=== PATIENT | male | born 1960 | race Hispanic/Latino ===

== ENCOUNTER 2019-06-27 16:00 | Emergency (ER) | payer OTHER ==
[~2019-06-27] VITALS: Ht 172.7 cm; Wt 108.9 kg
[2019-06-27] MEDS ORDERED: ASPIRIN 81 MG CHEW TAB PO ONE (17:15)
--- NOTE | 2019-06-27 17:28 | Emergency Department Note ---
History of Present Illnes History of Present Illness Chief Complaint: General Medicine Complaints History of Present Illness This is a 58 year old male .c/o hear racing nessa on and off each time felt little sob Chief Complaint Comment here for palpitations early this morning and got worse as the day progressed. states palpitations take his breath away at times. Historian: Patient Arrival Mode: Car Onset (how long ago): day(s) (this am ) Radiation: non-radiation, back, neck, extremity, abdomen, periumbilical, flank, proximal, distal, other Severity: mild Onset quality: sudden Duration (how long): day(s) (today ) Progression: waxing and waning Context: recent illness, recent surgery, recent immobilization, recent travel, trauma/injury, new medications, hx of DVT/PE, non-compliance w/ medications, other Relieving factors: none Exacerbating factors: none Associated symptoms: denies other symptoms Treatments prior to arrival: none (REGINALD CANALES NP) Past Medical/Family History Physician Review I have reviewed the patient's past medical and family history. Any updates have been documented here. (REGINALD CANALES NP) Past Medical History Recent Fever: No Clinical Suspicion of Infectio: No New/Unexplained Change in Ment: No Past Medical History: Hypertension Other Surgery: intestinal rupture (REGINALD CANALES NP) Social History Smoking Cessation: Never Smoker Alcohol Use: None Any Illegal Drug Use: No TB Exposure/Symptoms: No (REGINALD CANALES NP) Family History Family history of heart diseas: No (REGINALD CANALES NP) Other Any Pre-Existing Lines (PICC,: No (REGINALD CANALES NP) Review of Systems Review of Systems Constitutional: no symptoms EENTM: no symptoms Cardiovascular: palpitations Respiratory: no symptoms Gastrointestinal: no symptoms Genitourinary: no symptoms Musculoskeletal: no symptoms Neurological: no symptoms Psychological: no symptoms Endocrine: no symptoms Hematological/Lymphatic: no symptoms Review of other systems All other systems reviewed and negative. (REGINALD CANALES NP) Physical Exam Related Data Allergies: Coded Allergies: No Known Allergies (Unverified , 06/27/19) Triage Vital Signs Vital Signs Date Time Temp Pulse Resp B/P (MAP) Pulse Ox O2 Delivery O2 Flow Rate FiO2 06/27/19 16:43 97.8 92 16 179/95 96 Vital signs reviewed: Yes (SHORT,REGINALD D SPRINKLER FITTER HELPER) Physical Exam CONSTITUTIONAL Constitutional: well-developed, well-nourished HENT HENT: normocephalic, atraumatic, oropharynx clear/moist, nose normal HENT L/R: left ext ear normal, right ext ear normal EYES Eyes: PERRL, conjunctivae normal NECK Neck: ROM normal PULMONARY Pulmonary: effort normal, breath sounds normal CARDIOVASCULAR Cardiovascular: regular rhythm, heart sounds normal, capillary refill normal, normal rate GASTROINTESTINAL Abdominal: soft, nontender, bowel sounds normal GENITOURINARY Genitourinary: exam deferred SKIN Skin: warm, dry MUSCULOSKELETAL Musculoskeletal: ROM normal NEUROLOGICAL Neurological: alert, oriented x 3, no gross motor or sensory deficits PSYCHOLOGICAL Psychological: mood/affect normal, judgement normal (REGINALD CANALES SPRINKLER FITTER HELPER) Results Laboratory Laboratory Laboratory Tests Test 06/27/19 18:19 06/27/19 17:57 Urine Color Yellow (YELLOW) Urine Clarity Clear (CLEAR) Urine pH 6.5 (5 - 7) Urine Specific [place] 1.025 (1.010-1.025) Urine Protein Negative (NEGATIVE) Urine Glucose (UA) Negative (NEGATIVE) Urine Ketones Negative (NEGATIVE) Urine Blood Trace (NEGATIVE) Urine Nitrite Negative (NEGATIVE) Urine Bilirubin Negative (NEGATIVE) Urine Urobilinogen 1 mg/dL (0.2 - 1) Urine Leukocyte Esterase Negative (NEGATIVE) Urine RBC None /HPF (0-5) Urine WBC None /HPF (0-5) Urine Epithelial Cells Rare /LPF (NONE) Urine Bacteria None /HPF (NONE) Urine Opiates Screen Negative (NEGATIVE) Urine Methadone Screen Negative (NEGATIVE) Urine Barbiturates Screen Negative (NEGATIVE) Urine Phencyclidine Screen Negative (NEGATIVE) Urine Amphetamines Screen Negative (NEGATIVE) Urine Methamphetamines Screen Negative (NEGATIVE) Urine Benzodiazepines Screen Negative (NEGATIVE) Urine Cocaine Screen Negative (NEGATIVE) Urine Cannabinoids Screen Negative (NEGATIVE) White Blood Count 8.64 x10e3/uL (4.8-10.8) Red Blood Count 4.94 x10e6/uL (4.3-5.7) Hemoglobin 14.9 g/dL (14.0-18.0) Hematocrit 44.4 % (38.2-49.6) Mean Corpuscular Volume 89.9 fL (81-99) Mean Corpuscular Hemoglobin 30.2 pg (28-32) Mean Corpuscular Hemoglobin Concent 33.6 g/dL (31-35) Red Cell Distribution Width 13.7 % (11.7-14.4) Platelet Count 253 x10e3/uL (140-360) Neutrophils (%) (Auto) 67.0 % (38.7-80.0) Lymphocytes (%) (Auto) 20.7 % (18.0-39.1) Monocytes (%) (Auto) 9.5 % (4.4-11.3) Eosinophils (%) (Auto) 1.9 % (0.0-6.0) Basophils (%) (Auto) 0.6 % (0.0-1.0) Neutrophils # (Auto) 5.8 (2.1-6.9) Lymphocytes # (Auto) 1.8 (1.0-3.2) Monocytes # (Auto) 0.8 (0.2-0.8) Eosinophils # (Auto) 0.2 (0.0-0.4) Basophils # (Auto) 0.1 (0.0-0.1) Absolute Immature Granulocyte (auto 0.03 x10e3/uL (0-0.1) Prothrombin Time 13.4 seconds (11.9-14.5) Prothromb Time International Ratio 0.96 Activated Partial Thromboplast Time 27.1 seconds (23.8-35.5) Sodium Level 140 mmol/L (136-145) Potassium Level 3.9 mmol/L (3.5-5.1) Chloride Level 107 mmol/L (98-107) Carbon Dioxide Level 22 mmol/L (22-29) Anion Gap 14.9 mmol/L (8-16) Blood Urea Nitrogen 16 mg/dL (7-26) Creatinine 1.06 mg/dL (0.72-1.25) Estimat Glomerular Filtration Rate > 60 ML/MIN (60-) BUN/Creatinine Ratio 15 (6-25) Glucose Level 113 mg/dL (74-118) Calcium Level 8.8 mg/dL (8.4-10.2) Total Bilirubin 0.4 mg/dL (0.2-1.2) Aspartate Amino Transf (AST/SGOT) 49 IU/L (5-34) Alanine Aminotransferase (ALT/SGPT) 103 IU/L (0-55) Alkaline Phosphatase 89 IU/L (40-150) Creatine Kinase 85 IU/L (30-200) Creatine Kinase MB 1.90 ng/mL (0-5.0) Troponin I < 0.001 ng/mL (0-0.300) Total Protein 7.1 g/dL (6.5-8.1) Albumin 3.6 g/dL (3.5-5.0) Globulin 3.5 g/dL (2.3-3.5) Albumin/Globulin Ratio 1.0 (0.8-2.0) Thyroid Stimulating Hormone (TSH) 2.054 uIU/mL (0.350-4.940) Laboratory Tests Test 06/27/19 17:57 White Blood Count 8.64 x10e3/uL (4.8-10.8) Red Blood Count 4.94 x10e6/uL (4.3-5.7) Hemoglobin 14.9 g/dL (14.0-18.0) Hematocrit 44.4 % (38.2-49.6) Mean Corpuscular Volume 89.9 fL (81-99) Mean Corpuscular Hemoglobin 30.2 pg (28-32) Mean Corpuscular Hemoglobin Concent 33.6 g/dL (31-35) Red Cell Distribution Width 13.7 % (11.7-14.4) Platelet Count 253 x10e3/uL (140-360) Neutrophils (%) (Auto) 67.0 % (38.7-80.0) Lymphocytes (%) (Auto) 20.7 % (18.0-39.1) Monocytes (%) (Auto) 9.5 % (4.4-11.3) Eosinophils (%) (Auto) 1.9 % (0.0-6.0) Basophils (%) (Auto) 0.6 % (0.0-1.0) Neutrophils # (Auto) 5.8 (2.1-6.9) Lymphocytes # (Auto) 1.8 (1.0-3.2) Monocytes # (Auto) 0.8 (0.2-0.8) Eosinophils # (Auto) 0.2 (0.0-0.4) Basophils # (Auto) 0.1 (0.0-0.1) Absolute Immature Granulocyte (auto 0.03 x10e3/uL (0-0.1) Prothrombin Time 13.4 seconds (11.9-14.5) Prothromb Time International Ratio 0.96 Activated Partial Thromboplast Time 27.1 seconds (23.8-35.5) Sodium Level 140 mmol/L (136-145) Potassium Level 3.9 mmol/L (3.5-5.1) Chloride Level 107 mmol/L (98-107) Carbon Dioxide Level 22 mmol/L (22-29) Anion Gap 14.9 mmol/L (8-16) Blood Urea Nitrogen 16 mg/dL (7-26) Creatinine 1.06 mg/dL (0.72-1.25) Estimat Glomerular Filtration Rate > 60 ML/MIN (60-) BUN/Creatinine Ratio 15 (6-25) Glucose Level 113 mg/dL (74-118) Calcium Level 8.8 mg/dL (8.4-10.2) Total Bilirubin 0.4 mg/dL (0.2-1.2) Aspartate Amino Transf (AST/SGOT) 49 IU/L (5-34) Alanine Aminotransferase (ALT/SGPT) 103 IU/L (0-55) Alkaline Phosphatase 89 IU/L (40-150) Creatine Kinase 85 IU/L (30-200) Total Protein 7.1 g/dL (6.5-8.1) Albumin 3.6 g/dL (3.5-5.0) Globulin 3.5 g/dL (2.3-3.5) Albumin/Globulin Ratio 1.0 (0.8-2.0) (REGINALD CANALES SPRINKLER FITTER HELPER) Imaging Impressions Procedure: DX/CHEST SINGLE (PORTABLE) Exam Date: 06/27/19 Exam Time: 1809 REPORT STATUS: Signed Examination: Single AP view of the chest. COMPARISON: None. INDICATION: Heart palpitations IMPRESSION: 1. Lines and Tubes: None 2. Lungs are grossly clear. No consolidation or effusion. 3. Cardiomediastinal silhouette is normal. Pulmonary vasculature is normal. 4. No acute bony abnormalities. Signed by: Dr. Alaina Stark M.D. on 06/27/2019 6:33 PM Dictated By: ALAINA STARK MD 32 Transcribed By: SAIDA on 06/27/191832 (REGINALD CANALES NP) Procedures 12 Lead ECG Interpretation Communications Engineering Technician: Interpreted by ED physician ([email or web address]) Date: June 27, 2019 Time: 17:55 Prior INTERACTIVE MULTIMEDIA DESIGNER tracings: reviewed Rhythm: sinus rhythm Rate: normal BPM: 79 QRS axis: normal Clinical Impression: normal ECG (REGINALD CANALES NP) Critical Care Time Subsequent provider I assumed direction of critical care for this patient from another provider of my specialty. (REGINALD CANALES NP) Clinical Decision Tools HEART Score Date Taken: June 27, 2019 Time taken: 17:53 List risk factors htn HEART Score: HEART Score Response (Comments) Value History Slightly suspicious 0 EKG Normal 0 Age 45 - 65 1 Risk factors 1 or 2 risk factors 1 Troponin < or = to normal limit Total 2 (REGINALD CANALES NP) Assessment & Plan Reassessment Reassessment time: 17:26 Reassessment 58y m presented to ed c/o palpitations on set today w/ feeling little sob sts palpitations come and go -pt denies cp dizziness n/v sob barber at this time - Dr Isaac castaneda in eval pt status - lab ekg cxr ordered (REGINALD CANALES NP) Reassessment Repeat EKG at 2134 demonstrates ,NSR at rate of [address] deviation or ectopy . CE x 2 pending but expected disposition is discharge if neg (REGINALD SPEARS DO) Assessment & Plan Final Impression: (1) Palpitations Assessment & Plan Dr Spears in eval pt status discussed lab cxr ekg results plan of care will rept 2nd set CE if ok f/u w/ hunter trapper in 1-2 days w/o fail 1. follow up with hunter trapper in 1-2 days without fail 2. return to ed as needed 3. avoid all caffeine products (REGINALD CANALES NP) Depart Disposition: HOME, SELF-CARE Last Vital Signs Vital Signs Date Time Temp Pulse Resp B/P (MAP) Pulse Ox O2 Delivery O2 Flow Rate FiO2 06/27/19 18:51 84 18 137/89 97 06/27/19 16:43 97.8 92 16 179/95 96 Date Time Temp Pulse Resp B/P (MAP) Pulse Ox O2 Delivery O2 Flow Rate FiO2 06/27/19 16:43 97.8 92 16 179/95 96 (REGINALD CANALES NP) Medications in the ED Aspirin 81 mg PRN ONCE PO ; Start 06/27/19 at 17:15; Stop 5/20/20 at 17:16 (REGINALD CANALES SPRINKLER FITTER HELPER) Medications in the ED Aspirin 81 mg PRN ONCE PO Last administered on 06/27/19at 17:54; Admin Dose 81 MG; Start 06/27/19 at 17:15; Stop 06/27/19 at 17:27; Status DC (REGINALD SPEARS DO) Physician Attestation Provider Attestation The patient's history, exam findings, diagnostics, and a summary of any interventions or procedures was reviewed in detail with our DANIELA. I personally interviewed and examined the patient, and I have reviewed and agree with the HPI andexam. My personal exam shows [Normal exam. NSR x 2 with CE x 2 negative. Patient to be discharged to home. ]. I confirm the diagnosis as documented by the DANIELA. I have reviewed and agree with the care plan articulated in the disposition section. (REGINALD SPEARS DO) REGINALD CANALES NP June 27, 2019 17:28 REGINALD SPEARS DO June 27, 2019 21:35
[2019-06-27 18:18] LABS: BASOPHILS # (AUTO) 0.1 (0.0-0.1); BASOPHILS % 0.6 % (0.0-1.0); EOSINOPHILS # (AUTO) 0.2 (0.0-0.4); EOSINOPHILS % 1.9 % (0.0-6.0); HEMATOCRIT 44.4 % (38.2-49.6); HEMOGLOBIN 14.9 g/dL (14.0-18.0); LYMPHOCYTES # (AUTO) 1.8 (1.0-3.2); LYMPHOCYTES % 20.7 % (18.0-39.1); MEAN CORPUSCULAR HEMOGLOBIN 30.2 pg (28-32); MEAN CORPUSCULAR HGB CONC 33.6 g/dL (31-35); MEAN CORPUSCULAR VOLUME 89.9 fL (81-99); MONOCYTES # (AUTO) 0.8 (0.2-0.8); MONOCYTES % 9.5 % (4.4-11.3); NEUTROPHILS # (AUTO) 5.8 (2.1-6.9); PLATELET COUNT 253 x10e3/uL (140-360); RED BLOOD COUNT 4.94 x10e6/uL (4.3-5.7); RED CELL DISTRIBUTION WIDTH 13.7 % (11.7-14.4)
[2019-06-27 18:24] LABS: INR 0.96; PROTHROMBIN TIME 13.4 seconds (11.9-14.5)
[2019-06-27 18:25] LABS: PARTIAL THROMBOPLASTIN TIME 27.1 seconds (23.8-35.5)
[2019-06-27 18:31] LABS: ALANINE AMINOTRANSFERASE 103 IU/L (0-55); ALBUMIN 3.6 g/dL (3.5-5.0); ALKALINE PHOSPHATASE 89 IU/L (40-150); ANION GAP 14.9 mmol/L (8-16); BLOOD UREA NITROGEN 16 mg/dL (7-26); BUN/CREATININE RATIO 15 (6-25); CALCIUM 8.8 mg/dL (8.4-10.2); CARBON DIOXIDE 22 mmol/L (22-29); CHLORIDE 107 mmol/L (98-107); CREATINE KINASE 85 IU/L (30-200); CREATININE, SERUM 1.06 mg/dL (0.72-1.25); EST GLOMERULAR FILTRATION RATE > 60 ML/MIN (60-); GLUCOSE 113 mg/dL (74-118); POTASSIUM 3.9 mmol/L (3.5-5.1); SODIUM 140 mmol/L (136-145)
--- NOTE | 2019-06-27 18:37 | Diagnostic Imaging Report ---
Examination: Single AP view of the chest. COMPARISON: None. INDICATION: Heart palpitations IMPRESSION: 1. Lines and Tubes: None 2. Lungs are grossly clear. No consolidation or effusion. 3. Cardiomediastinal silhouette is normal. Pulmonary vasculature is normal. 4. No acute bony abnormalities. Signed by: Dr. Leonides Stark M.D. on 06/27/2019 6:33 PM
[2019-06-27 18:54] LABS: AMPHETAMINES SCREEN,URINE NEGATIVE (NEGATIVE); BENZODIAZEPINES SCREEN,URINE NEGATIVE (NEGATIVE); CLARITY,URINE CLEAR (CLEAR); COLOR,URINE YELLOW (YELLOW); KETONES,URINE NEGATIVE (NEGATIVE); LEUKOCYTE ESTERASE ,URINE NEGATIVE (NEGATIVE); NITRITE,URINE NEGATIVE (NEGATIVE); PHENCYCLIDINE SCREEN,URINE NEGATIVE (NEGATIVE); PROTEIN,URINE DIPSTICK NEGATIVE (NEGATIVE)
[2019-06-27 18:55] LABS: THYROID STIMULATING HORMONE 2.054 uIU/mL (0.350-4.940)
[2019-06-27 18:55] LABS: BILIRUBIN,URINE NEGATIVE (NEGATIVE); URINE UROBILINOGEN 1 mg/dL (0.2 - 1)
[2019-06-27 19:04] LABS: EPITHELIAL CELLS,URINE RARE /LPF
--- NOTE | 2019-06-27 19:22 | NUR ---
report given to Andres NAJERA
[2019-06-27 21:38] LABS: CREATINE KINASE 85 IU/L (30-200)
[2019-06-27 22:00] VITALS: BP 116/59
--- OUTSIDE RECORDS SUMMARY | 2019-06-28 10:13 | XMS REPORT | Clinical Summary ---
Author Author [facility] Organization [facility] Address Unknown Phone Unavailable Care Team Providers Care Banquet Waiter/Waitress Name Role Phone Asked, No Pcp PCP Unavailable Allergies Not on File Medications Not on file Active Problems Not on file Encounters Care Team Description Date Type Specialty 06/20/2019 Travel Santosh Patel MD Complex tear of lateral meniscus of righ t knee as current injury, initial encounter (Primary Dx); Acute pain of right knee 06/14/2019 Office Visit Orthopedic Surgery 06/14/2019 Travel after 06/26/2018 Social History Date Tobacco Use Types Packs/Day Years Used Never Assessed Sex Assigned at Date Recorded Not on file Industry Job Start Date Occupation Not on file Not on file Not on file Travel End Travel History Travel Start No recent travel history available. Date Recorded COVID-19 Exposure Response 06/20/2019 1:52 PM CDT In the last month, have you been in contact with No / Unsure someone who was confirmed or suspected to have Coronavirus / COVID-19? Last Filed Vital Signs Not on file Plan of Treatment Health Maintenance Due Date Last Done Comments COLONOSCOPY SCREENING 10/15/2011 SHINGLES VACCINES (#1) 10/15/2011 INFLUENZA VACCINE 09/08/2019 Procedures Comments Procedure Name Priority Date/Time Associated Diag nosis XR KNEE 4+ VW RIGHT Routine 06/14/2019 Acute pain of right knee 1:25 PM CDT after 06/26/2018 Results * XR Knee 4+ Vw Right (06/14/2019 1:25 PM CDT) Specimen Narrative Performed At [facility] Three-view projection of the right knee shows a preservation of the joint with an anatomic angle of +6 degrees on ly mild notch congestion and lateral joint osteophyte formation with minimal amount of medial joint space narrowing. The lateral aspect o r sagittal view shows no excellent preservation of the joint the merchant view centers at 6 degrees no evidence of any patellofemoral arthriti s. Performing Organization Address City/State/Zipcode Ph one Number [facility] [address] [place] [address] after 06/26/2018 Insurance Type Payer Benefit Subscriber ID Effective Phone Address Plan / Dates Group HMO CIGNA CIGNA OPEN xxxxxxxxxxx 2017-P ACCESS/NET resent WORK Advance Directives For more information, please contact: [phone] Patient Fuel Truck Driver Explanation Type Date Recorded Advance Directives, Living Will and Medical Power of Application Support Engineer
--- OUTSIDE RECORDS SUMMARY | 2019-06-28 10:13 | XMS REPORT ---
Author Author [facility] t Organization [facility] Address [address] [place] [address] Phone Unavailable Care Team Providers Care Propulsion Machinery Service Engineer Name Role Phone Neeru MATA PCP REGINALD LOPEZ Attphys Unavailable Eren Agarwal MD Attphys CASTRO YADAV Attphys Unavailable CASTRO YADAV Admphys Unavailable Payers Payer Name Policy Type Policy Number Effective Date Expiration Date Keerthi jeter CIGGAKunal OPEN ACCESS/NETWORKxxxxxxxxxxx1-PresentO xxxxxxxxxxx 2017 00:00:00 [facility] Advance Directives Directive Decision Effective Date Termination Date Comments Sour ce Yes N/A [facility] Problems Condition Name Condition Details Condition Category Status Onset Date Resolution Date Last Treatment Date Treating Clinician Comments Source Palpitations Problem [facility] Allergies, Adverse Reactions, Alerts This patient has no known allergies or adverse reactions. Social History Social Habit Start Date Stop Date Quantity Comments Source Sex Assigned At [facility] Exposure to SARS-CoV-2 (event) Not sure [facility] Medications This patient has no known medications. Vital Signs Vital Name Observation Time Observation Value Comments Source Body Temperature 2019-06-27 22:00:00 98.5 [degF] [facility] Weight 2019-06-27 16:43:00 240 [lb_av] [facility] BMI (Body Mass Index) 2019-06-27 16:43:00 36.5 kg/m2 [facility] Procedures Procedure Date / Time Performed [facility]forming [facility] VW RIGHT 2019-06-14 13:25:14 [facility] Plan of Care Planned Activity Planned Date Details Comments Source Future Scheduled Test 2019-09-08 00:00:00 INFLUENZA VACCINE [code = INFLUENZA VACCINE] [facility] Future Scheduled Test 2011-10-15 00:00:00 COLONOSCOPY SCREEN ING [code = COLONOSCOPY SCREENING] [facility] Scheduled Test 2011-10-15 00:00:00 SHINGLES VACCINES (#1) [code = SHINGLES VACCINES (#1)] [facility] Scheduled Test Bacterial urine culture [code = 630-4] [facility] Future Scheduled Test Serum or plasma cr eatine kinase measurement (enzymatic activity/volume) [code = 2157-6] [facility] Future Scheduled Test Serum or plasma cr eatine kinase MB measurement (mass/volume) [code = 30517-3] [facility] Future Scheduled Test Serum or plasma tr oponin i.cardiac measurement by detection limit <= 0.01 NG/ml (mass/volume) [code = 16982-6] [facility] Goal Patient referral [code = 1091896 ] [facility] Goal Patient referral [code = 1007830 ] [facility] Goal Patient referral [code = 1544263 ] [facility] Goal Patient referral [code = 8585694 ] [facility] Instructions Heart Palpitations [facility] Encounters Start Date/Time End Date/Time Encounter Type Admission Type Attendi [facility] Care Department Encounter ID Source 2019-06-27 16:00:00 2019-06-27 22:05:00 Departed Emergency Room [address] [facility] [id number] [facility] 2019-06-14 00:00:00 2019-06-14 00:00:00 Outpatient Kelly AGARWAL [facility] [id number] Wilber Ocasioist 2019-06-14 00:00:00 2019-06-14 00:00:00 Outpatient Kelly AGARWAL [facility] [id number] [facility] Results Test Description Test Time Test Comments Results Result Comments Source Serum or plasma creatine kinase measurement (enzymatic activity/volume) 2019-06-27 21:15:00 Test Item Creatine Kinase (test code = 2157-6) 85 [facility] creatine kinase MB measurement (mass/volume)2019-06-27 21:15:00* Test Item Value Reference Range Interpretation Comments Creatine Kinase MB (test code = 27555-6) 2.00 [facility] CenterTroponin I measurement by highly sensitive enzyme eacjxitiqms4617-86-53 21:15:00* Test Item Value Reference Range Interpretation Comments Troponin I (test code = 27934-3) < 0.001 [facility] CenterCHEST SINGLE (PORTABLE)2019-06-27 18:33:00 [facility] [address] [place] [address] Patient Name: VALARIE SWEENEY MR #: [id number] : 1960 Age/Sex: 58/M Req #: [id number] Adm Physician: Ordered by: REGINALD CANALES SENIOR MANAGING DIRECTOR Report #: [id number] Location: ER Room/Bed: Procedure: [id number] DX/CHEST SIN GLE (PORTABLE) Exam Date: 06/27/19 Exam Time: 1809 REPORT STATUS: Signed Examination: Single AP view of the chest. COMPARISON: None. INDICATION: Heart pal pitations IMPRESSION: 1. Lines and Tubes: None 2. Lungs are g rossly clear. No consolidation or effusion. 3. Cardiomediastinal silhouette is normal. Pulmonary vasculature is normal. 4. No acute bony abnormalities. Signed by: Dr. Leonides Stark M.D. on 06/27/2019 6:33 PM Dictated By: LEONIDES STARK MD 32 Transcribed By: SAIDA on 06/27/191832 COPY TO: REGINALD CANALES NP Urine color tpnoksyuudqkm4638-59-44 18:19:00* Test Item Value Reference Range Interpretation Comments Urine Color (test code = 5778-6) YELLOW [facility] CenterUrine rofewyd1322-53-72 18:19:00* Test Item Value Reference Range Interpretation Comments Urine Clarity (test code = 89253-0) CLEAR [facility] U[facility] by Test strip 2019-06-27 18:19:00* Test Item Value Reference Range Interpretation Comments Urine Specific [place] (test code = 5811-5) 1.025 [facility] CenterU[facility] pH measurement by automated test aaxgp3466-61-78 18:19:00* Test Item Value Reference Range Interpretation Comments Urine pH (test code = 57634-5) 6.5 [facility] CenterUrine leukocyte esterase detection by btuqmfvi8035-37-12 18:19:00* Test Item Value Reference Range Interpretation Comments Urine Leukocyte Esterase (test code = 5799-2) NEGATIVE [facility] CenterUrine nitrite kxrapkimm1686-62-26 18:19:00* Test Item Value Reference Range Interpretation Comments Urine Nitrite (test code = 58178-1) NEGATIVE [facility] CenterUrine protein measurement by test strip (mass/volume)2019-06-27 18:19:00* Test Item Value Reference Range Interpretation Comments Urine Protein (test code = 5804-0) NEGATIVE [facility] CenterUrine glucose aqhzewfrr6130-79-87 18:19:00* Test Item Value Reference Range Interpretation Comments Urine Glucose (UA) (test code = 2349-9) NEGATIVE [facility] CenterUrine ketones detection by automated test ioyyg6048-72-02 18:19:00* Test Item Value Reference Range Interpretation Comments Urine Ketones (test code = 67050-1) NEGATIVE [facility] CenterUrine opiates screening moyj5817-89-57 18:19:00* Test Item Value Reference Range Interpretation Comments Urine Opiates Screen (test code = 37633-5) NEGATIVE [facility] CenterBarbiturates screen, usqee0745-57-52 18:19:00* Test Item Value Reference Range Interpretation Comments Urine Barbiturates Screen (test code = 038557254) NEGATIVE [facility] CenterUrine phencyclidine detection by screening uuwikk8177-60-46 18:19:00* Test Item Value Reference Range Interpretation Comments Urine Phencyclidine Screen (test code = 67546-6) NEGATIVE [facility] CenterUrine amphetamines detection by screen method > 1000 ng/pG2155-30-87 18:19:00* Test Item Value Reference Range Interpretation Comments Urine Amphetamines Screen (test code = 12416-6) NEGATIVE [facility] CenterFluoroscopic procedure less than one hour eikyciwp0830-69-25 18:19:00* Test Item Value Reference Range Interpretation Comments Urine Methamphetamines Screen (test code = Urine Metha mphetamines Screen) NEGATIVE [facility] CenterUrine benzodiazepines detection by screening ayaztk3379-54-10 18:19:00* Test Item Value Reference Range Interpretation Comments Urine Benzodiazepines Screen (test code = 78877-0) NEGATIVE [facility] CenterUrine cocaine measurement (mass/volume) 2019-06-27 18:19:00* Test Item Value Reference Range Interpretation Comments Urine Cocaine Screen (test code = 3398-5) NEGATIVE [facility] CenterUrine cannabinoids detection by screening phrgtz1259-55-55 18:19:00* Test Item Value Reference Range Interpretation Comments Urine Cannabinoids Screen (test code = 62533-3) NEGATIVE [facility] CenterUrine methadone tctlkr6088-97-79 18:19:00 * Test Item Value Reference Range Interpretation Comments Urine Methadone Screen (test code = 21720-5) NEGATIVE [facility] CenterUrine urobilinogen measurement by test strip (mass/volume)2019-06-27 18:19:00* Test Item Value Reference Range Interpretation Comments Urine Urobilinogen (test code = 96101-7) 1 [facility] CenterUrine total bilirubin measurement (mass/volume)2019-06-27 18:19:00* Test Item Value Reference Range Interpretation Comments Urine Bilirubin (test code = 1978-6) NEGATIVE [facility] CenterUrine erythrocytes pvbaaknbt8387-58-93 18:19:00* Test Item Value Reference Range Interpretation Comments Urine Blood (test code = 34308-0) TRACE [facility] CenterAutomated urine sediment leukocyte count by microscopy (number/high power field)2019-06-27 18:19:00* Test Item Value Reference Range Interpretation Comments Urine WBC (test code = 5821-4) NONE [facility] CenterErythrocytes detection in urine sediment by light gwdcudxwtk1405-40-78 18:19:00* Test Item Value Reference Range Interpretation Comments Urine RBC (test code = 61911-2) NONE [facility] CenterBacteria detection in urine sediment by light srigztafqg8228-82-61 18:19:00* Test Item Value Reference Range Interpretation Comments Urine Bacteria (test code = 80286-9) NONE [facility] CenterEpithelial cells detection in urine sediment by light qsxtlwsxga5430-32-48 18:19:00* Test Item Value Reference Range Interpretation Comments Urine Epithelial Cells (test code = 47574-1) RARE [facility] CenterBlood leukocytes automated count (number/volume)2019-06-27 17:57:00* Test Item Value Reference Range Interpretation Comments White Blood Count (test code = 6690-2) 8.64 [facility] CenterBlood erythrocytes automated count (number/volume)2019-06-27 17:57:00* Test Item Value Reference Range Interpretation Comments Red Blood Count (test code = 789-8) 4.94 [facility] CenterBlood hemoglobin measurement (moles/volume)2019-06-27 17:57:00* Test Item Value Reference Range Interpretation Comments Hemoglobin (test code = 60651-5) 14.9 [facility] CenterAutomated blood hematocrit (volume fraction)2019-06-27 17:57:00* Test Item Value Reference Range Interpretation Comments Hematocrit (test code = 4544-3) 44.4 [facility] CenterAutomated erythrocyte mean corpuscular putkyc1294-01-46 17:57:00* Test Item Value Reference Range Interpretation Comments Mean Corpuscular Volume (test code = 787-2) 89.9 [facility] CenterAutomated erythrocyte mean corpuscular hemoglobin (mass per erythrocyte)2019-06-27 17:57:00* Test Item Value Reference Range Interpretation Comments Mean Corpuscular Hemoglobin (test code = 785-6) 30.2 [facility] CenterAutomated erythrocyte mean corpuscular hemoglobin concentration measurement (mass/volume)2019-06-27 17:57:00* Test Item Value Reference Range Interpretation Comments Mean Corpuscular Hemoglobin Concent (test code = 786-4) 33.6 [facility] CenterRDW NrnLr-Bdj2256-08-20 17:57:00* Test Item Value Reference Range Interpretation Comments Red Cell Distribution Width (test code = 52229-0) 13.7 [facility] CenterAutomated blood platelet count (count/volume)2019-06-27 17:57:00* Test Item Value Reference Range Interpretation Comments Platelet Count (test code = 777-3) 253 [facility] CenterAutvidant pungo hospitaled blood segmented neutrophil count as percentage of total zdnvswneeu2432-90-08 17:57:00* Test Item Value Reference Range Interpretation Comments Neutrophils (%) (Auto) (test code = 66381-7) 67.0 [facility] CenterAutomated blood lymphocyte count as percentage ot total jvzvjwiclp8974-65-94 17:57:00* Test Item Value Reference Range Interpretation Comments Lymphocytes (%) (Auto) (test code = 736-9) 20.7 [facility] CenterAutvidant pungo hospitaled blood monocyte count as percentage of total ltlktmzdvj1798-43-20 17:57:00* Test Item Value Reference Range Interpretation Comments Monocytes (%) (Auto) (test code = 5905-5) 9.5 [facility] CenterAutomated blood eosinophil count as percentage of total brquwfscuk8470-48-39 17:57:00* Test Item Value Reference Range Interpretation Comments Eosinophils (%) (Auto) (test code = 713-8) 1.9 [facility] CenterAutomated blood basophil count as percentage of total ejcxovtwmi7909-73-14 17:57:00* Test Item Value Reference Range Interpretation Comments Basophils (%) (Auto) (test code = 706-2) 0.6 [facility] CenterFluoroscopic procedure less than one hour hfvtagcm7752-36-83 17:57:00* Test Item Value Reference Range Interpretation Comments IM GRANULOCYTES % (test code = IM GRANULOCYTES %) 0.3 [facility] CenterAutomated blood neutrophil count 2019-06-27 17:57:00* Test Item Value Reference Range Interpretation Comments Neutrophils # (Auto) (test code = 751-8) 5.8 [facility] CenterBlood lymphocytes count (number/volume) 2019-06-27 17:57:00* Test Item Value Reference Range Interpretation Comments Lymphocytes # (Auto) (test code = 88177-1) 1.8 [facility] CenterBlmadelia community hospital monocytes automated count (number/volume)2019-06-27 17:57:00* Test Item Value Reference Range Interpretation Comments Monocytes # (Auto) (test code = 742-7) 0.8 [facility] CenterAutomated blood eosinophil count 2019-06-27 17:57:00* Test Item Value Reference Range Interpretation Comments Eosinophils # (Auto) (test code = 711-2) 0.2 [facility] CenterAutomated blood basophil count (count/volume)2019-06-27 17:57:00* Test Item Value Reference Range Interpretation Comments Basophils # (Auto) (test code = 704-7) 0.1 [facility] CenterFluoroscopic procedure less than one hour khshuujy5462-53-42 17:57:00* Test Item Value Reference Range Interpretation Comments Absolute Immature Granulocyte (auto (natalie t code = Absolute Immature Granulocyte (auto) 0.03 [facility] CenterProthrombin time (PT) in platelet poor plasma by coagulation newxi3024-56-61 17:57:00* Test Item Value Reference Range Interpretation Comments Prothrombin Time (test code = 5902-2) 13.4 [facility] CenterINR in Platelet poor plasma by Coagulation cychf4879-80-10 17:57:00* Test Item Value Reference Range Interpretation Comments Prothromb Time International Ratio (test code = 6301-6) 0.96 [facility] CenterActivated partial thromboplastin time (aPTT) in platelet poor plasma by coagulation kvven7235-34-72 17:57:00* Test Item Value Reference Range Interpretation Comments Activated Partial Thromboplast Time (test code = 10031-5) 27.1 [facility]wooderum or plasma sodium measurement (moles/volume)2019-06-27 17:57:00* Test Item Value Reference Range Interpretation Comments Sodium Level (test code = 2951-2) 140 [facility] Brownwooderum or plasma potassium measurement (moles/volume)2019-06-27 17:57:00* Test Item Value Reference Range Interpretation Comments Potassium Level (test code = 2823-3) 3.9 [facility]wooderum or plasma chloride measurement (moles/volume)2019-06-27 17:57:00* Test Item Value Reference Range Interpretation Comments Chloride Level (test code = 2075-0) 107 [facility] Brownwooderum or plasma carbon dioxide, total measurement (moles/volume)2019-06-27 17:57:00* Test Item Value Reference Range Interpretation Comments Carbon Dioxide Level (test code = 2028-9) 22 [facility]wooderum or plasma anion znq8625-41-70 17:57:00* Test Item Value Reference Range Interpretation Comments Anion Gap (test code = 98776-6) 14.9 [facility]wooderum or plasma urea nitrogen measurement (mass/volume)2019-06-27 17:57:00* Test Item Value Reference Range Interpretation Comments Blood Urea Nitrogen (test code = 3094-0) 16 [facility]wooderum or plasma creatinine measurement (mass/volume)2019-06-27 17:57:00* Test Item Value Reference Range Interpretation Comments Creatinine (test code = 2160-0) 1.06 [facility]wooderum or plasma urea nitrogen/creatinine mass xzing2365-72-94 17:57:00* Test Item Value Reference Range Interpretation Comments BUN/Creatinine Ratio (test code = 3097-3) 15 [facility] CenterEstimated glomerular filtration rate (GFR) kvajedmqpnxii6421-93-89 17:57:00* Test Item Value Reference Range Interpretation Comments Estimat Glomerular Filtration Rate (test code = 926878133) > 60 [facility] CenterGlucose cvfmmbstgzv4527-85-76 17:57:00* Test Item Value Reference Range Interpretation Comments Glucose Level (test code = SZS3553) 113 [facility]wooderum or plasma calcium measurement (mass/volume)2019-06-27 17:57:00* Test Item Value Reference Range Interpretation Comments Calcium Level (test code = 84099-3) 8.8 [facility]wooderum or plasma total bilirubin measurement (mass/volume)2019-06-27 17:57:00* Test Item Value Reference Range Interpretation Comments Total Bilirubin (test code = 1975-2) 0.4 [facility] CenterFluoroscopic procedure less than one hour lttbdraz4239-95-89 17:57:00* Test Item Value Reference Range Interpretation Comments Aspartate Amino Transf (AST/SGOT) (test code = Aspartate Amino Transf (AST/SGOT)) 49 [facility]wooderum or plasma alanine aminotransferase measurement (enzymatic activity/volume)2019-06-27 17:57:00* Test Item Value Reference Range Interpretation Comments Alanine Aminotransferase (ALT/SGPT) (test code = 1742-6) 103 [facility]wooderum or plasma protein measurement (mass/volume)2019-06-27 17:57:00* Test Item Value Reference Range Interpretation Comments Total Protein (test code = 2885-2) 7.1 [facility]wood[facility] or plasma albumin measurement (mass/volume)2019-06-27 17:57:00* Test Item Value Reference Range Interpretation Comments Albumin (test code = 1751-7) 3.6 [facility] CenterPlasma globulin measurement (mass/volume) 2019-06-27 17:57:00* Test Item Value Reference Range Interpretation Comments Globulin (test code = 35681-0) 3.5 [facility]wood[facility]um or plasma albumin/globulin mass wtbhg7905-02-17 17:57:00* Test Item Value Reference Range Interpretation Comments Albumin/Globulin Ratio (test code = 1759-0) 1.0 [facility] or plasma alkaline phosphatase measurement (enzymatic activity/volume)2019-06-27 17:57:00* Test Item Value Reference Range Interpretation Comments Alkaline Phosphatase (test code = 6768-6) 89 [facility] CenterBNP Stn-pHlk4641-45-20 17:57:00* Test Item Value Reference Range Interpretation Comments B-Type Natriuretic Peptide (test code = 89784-5) 24.9 [facility]wooderum or plasma thyrotropin measurement by detection limit <= 0.005 miu/l (units/volume)2019-06-27 17:57:00* Test Item Value Reference Range Interpretation Comments Thyroid Stimulating Hormone (TSH) (test code = 34810-5) 2.054 [facility] CenterTISSUE [id number] 10:37:00Surgical Pathology Report Case: [id number] Authorizing Provider: Luis Angel Yadav MD Collected: 12/22/2016 0808 Ordering Location: [facility] Received: 12/22/2016 1158 SERVICES Pathologist: Tressa Padilla MD Specimen: Mass, Messentery Mass SOFT TISSUE, MESENTERIC REGION, BIOPSY: - ADIPOSE TISSUE WITH FAT NECROSIS - NEGATIVE FOR ATYPIA OR MALIGNANCY Signing Pathologist Direct Phone Line: [phone] signed by Tressa Padilla MD on 12/24/2016 at 10:37 [id number] tumor of mesentery; 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 History of multiple hernias, adhesions.Mesentery m assReceived fresh labeled "mass", description "mesentery mass" is a 4.5 x 2.5 x 1.5 cm yellow-johnson to red irregular ragged soft tissue mass. Sectioning reveals a yellow-johnson rubbery lobulated dense cut surface consistent with fat necrosis. Re presentative sections are submitted in cassettes A1-A4. DB/plThe mesenteric samp les show adipose and connective tissue, predominantly adipose tissue. There is a bundant fat necrosis and there is hemosiderin, consistent with old hemorrhage. A typia or other features are not noted.EAGOGUPBGIBZ6794-12-90 18:41:00* Test Item Value Reference Range Interpretation Comments SODIUM (BEAKER) (test code = 381) 143 meq/L 136-145 POTASSIUM (BEAKER) (test code = 379) 4.6 meq/L 3.5-5.1 CHLORIDE (BEAKER) (test code = 382) 107 meq/L 98-107 CO2 (BEAKER) (test code = 355) 26 meq/L 22-29 BUN AND PBEOOMSWCL4172-72-73 18:41:00* Test Item Value Reference Range Interpretation Comments BLOOD UREA NITROGEN (BEAKER) (test code = 354) 14 mg/dL 7-21 CREATININE (BEAKER) (test code = 358) 1.08 mg/dL 0.57-1.25 EGFR (BEAKER) (test code = 1092) 71 mL/min/1.73 sq m ESTIMATED GFR IS NOT ACCURATE CREATININE CLEARANCE IN PREDICTING GLOMERULAR FILTRATION RATE. ESTIMATED GFR IS NOT APPLICABLE FOR DIALYSIS PATIENTS. [id number] 18:23:00* Test Item Value Reference Range Interpretation Comments HEMOGLOBIN (BEAKER) (test code = 410) 16.5 GM/DL 13.0-16.8
--- OUTSIDE RECORDS SUMMARY | 2019-06-28 10:13 | XMS REPORT | Clinical Summary ---
Author Author [facility] Address Unknown Phone Unavailable Care Team Providers Care Pipe Smoker Machine Operator Name Role Phone Jose Camarena PCP Unavailable Allergies No Known Allergies Medications End Date Status Medication Sig Dispensed Refills Start Date Active lisinopril 20 MG Tab 20 Take by mouth 0 mg, hydroCHLOROthiazide daily. 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 Last Filed Vital Signs Not on file Plan of Treatment Not on file Implants Device Identifier Shelf Expiration Date Model / Serial / L ot Implanted Type Area Manufactur er 01/04/2018 [id number] / N/A / [id number] Mesh Phasix 10x8in [id number] - Sn/A Mesh N/A: Abdomen CR Implanted: Qty: 1 on 12/22/2016 by BARD:Cody Escobedo MD Results Not on fileafter 06/26/2018 Insurance Payer Benefit Subscriber ID Type Phone Address Plan / Group [employer] - [facility] xxxxxxxxx [employer]IG[employer] HMO [address] [place] (Home) [place] [id number] Advance Directives For more information, please contact: [facility] [address] [place] [address] Date Inactivated Comments Code Status Date Activated 12/25/2016 1:08 PM Full Code 12/22/2016 3:10 PM This code status was determined by: Patient 09/15/2016 5:37 PM Full Code 09/15/2016 9:21 AM This code status was determined by: Patient
== END 2019-06-27 22:05 | disposition home or self-care (01) ==
LOC: ER 16:00
DX: R00.2 Palpitations (principal); R06.02 Shortness of breath; I10 Essential (primary) hypertension
CPT/HCPCS: 36415; 71045; 80053; 80307; 81001; 82550; 82553; 83880; 84443; 84484; 85025; 85610; 85730; 87086; 93005; 99284

== ENCOUNTER 2022-07-21 16:17 | Emergency (ER) | payer OTHER ==
[~2022-07-21] VITALS: Ht 172.7 cm; Wt 108.9 kg
[2022-07-21 17:39] LABS: BASOPHILS % 0.4 % (0.0-1.0); EOSINOPHILS # (AUTO) 0.1 (0.0-0.4); EOSINOPHILS % 1.3 % (0.0-6.0); HEMOGLOBIN 15.2 g/dL (14.0-18.0); LYMPHOCYTES # (AUTO) 1.7 (1.0-3.2); LYMPHOCYTES % 22.2 % (18.0-39.1); MEAN CORPUSCULAR HGB CONC 34.5 g/dL (31-35); MEAN CORPUSCULAR VOLUME 89.6 fL (81-99); MONOCYTES # (AUTO) 0.5 (0.2-0.8); NEUTROPHILS # (AUTO) 5.4 (2.1-6.9); PLATELET COUNT 277 x10e3/uL (140-360); RED BLOOD COUNT 4.91 x10e6/uL (4.3-5.7); RED CELL DISTRIBUTION WIDTH 12.8 % (11.7-14.4)
[2022-07-21 17:59] LABS: ALBUMIN/GLOBULIN RATIO 1.2 (0.8-2.0); CALCIUM 9.2 mg/dL (8.4-10.2); CREATININE, SERUM 0.85 mg/dL (0.72-1.25)
[2022-07-21] MEDS ORDERED: IOPAMIDOL 370 MG/ML 100 ML INFUS..BTL INJ ONE (18:09)
[2022-07-21 19:36] VITALS: BP 149/89; PULSE 70; RESP 17; TEMP 97.8; O2SAT 98
== END 2022-07-21 19:37 | disposition home or self-care (01) ==
LOC: ER 16:38
DX: R10.32 Left lower quadrant pain (principal); R91.8 Other nonspecific abnormal finding of lung field; I10 Essential (primary) hypertension
CPT/HCPCS: 36415; 74177; 80053; 83690; 85025; 99284; Q9967